=== PATIENT | male | born 1965 | race Caucasian/White ===

== ENCOUNTER → 2020-06-18 11:36 | Outpatient (CLI) | payer OTHER, SELFPAY ==
--- NOTE | 2020-06-18 11:47 | DI.CT.S_ITS ---
PROCEDURE: CT SINUS SCREEN WO CON INDICATIONS: Chronic pansinusitis TECHNIQUE: Noncontrast 3.0 mm axial images acquired from the frontal sinuses to the mid-sella, with coronal and sagittal reformats. For radiation dose reduction, the following was used: automated exposure control, adjustment of mA and/or kV according to patient size. COMPARISON: None. FINDINGS: Image quality: Excellent. Maxillary Sinuses: No bony remodeling or destruction. Sinuses are clear. Ethmoid Air Cells: No bony remodeling or destruction. Sinus [id number] mucosal thickening is seen within the left ethmoid air cells, with minimal mucosal thickening within the right ethmoid air cells. Sphenoid Sinuses: No bony remodeling or destruction. Sinuses are clear. Frontal Sinuses: No bony remodeling or destruction. Mild mucosal thickening is seen within the inferior right frontal sinus. Ostiomeatal Complexes: Ostiomeatal complexes are patent. No David cells. Miscellaneous: Visualized intra-orbital contents are normal. No ailin bullosa or paradoxical turbinate curvature. There is minimal leftward nasal septal deviation. There is an impacted tooth seen involving the floor of the left maxillary sinus posteriorly. IMPRESSION: Mucosal thickening is seen, which is most prominent involving the left ethmoid air cells. Note is made of an impacted tooth involving the floor of the left maxillary sinus posteriorly. Dictated by: Leobardo Lujan M.D. on 06/18/2020 at 11:33 Approved by: Leobardo Lujan M.D. on 06/18/2020 at 11:35
== END ==
PROVIDERS: Referring Provider Otolaryngology; Visit Provider Otolaryngology
DX: J32.4 Chronic pansinusitis (principal); J34.89 Other specified disorders of nose and nasal sinuses; R51.9 Headache, unspecified; K01.1 Impacted teeth
CPT/HCPCS: 70486